=== PATIENT | male | born 1975 | race Native Hawaiian/Other Pacific Islander ===

== ENCOUNTER 2019-12-08 10:53 | Emergency (ER) | payer OTHER ==
[2019-12-08] MEDS ORDERED: BUFFERED LIDOCAINE 10 ML SYRINGE SUBQ STA (12:18)
--- NOTE | 2019-12-08 12:21 | ED Physician Documentation ---
PD HPI UPPER EXT INJURY - Stated complaint Stated Complaint: LT FINGER LAC - Chief complaint Chief Complaint: Laceration - History obtained from History obtained from: Patient - History of Present Illness Location: Left Type of injury: Laceration - Additonal information Additional information: Right-handed gentleman up-to-date on tetanus cut his left index and middle fingers with a circular saw at home just prior to arrival. Review of Systems Constitutional: reports: Reviewed and negative Ears: reports: Reviewed and negative Nose: reports: Reviewed and negative Throat: reports: Reviewed and negative PD PAST MEDICAL HISTORY - Allergies Allergies/Adverse Reactions: Allergies Allergy/AdvReac Type Severity Reaction Status Date / Time No Known Drug Allergies Allergy Verified 12/08/19 12:37 PD ED PE NORMAL - Vitals Vital signs reviewed: Yes - General General: Alert and oriented X 3, No acute distress - Extremities Extremities: Other (Small laceration on the left index finger, ulnar side, palm ar surface, no distal neurovascular compromise, there is more of an extensive laceration across the pulp of the left middle finger and he is partially insensate distal to this.) - Neuro Neuro: Alert and oriented X 3, Normal speech Results - Vitals Vitals: Vital Signs - 24 hr 12/08/19 11:22 Temperature 36.3 C L Heart Rate 82 Respiratory 18 Rate Blood Pressure 151/108 H O2 Saturation 99 Oxygen O2 Source Room air - Rads (name of study) L hand 3v Radiology: EMP read contemporaneously (no open frx) Procedures - Laceration (location) Left middle Length in cm: 1.5 Wound type: Into subcut fat Neurovascular status: Motor intact, Vascular intact. No: Sensory intact Anesthesia: Lidocaine 1%, With bicarb Wound Preparation: Hibiclens, Irrigated copiously NS Skin layer closure: Nylon, Interrupted, Size #-0 - enter number (4-0), Sutures - enter # (5) Other: Tetanus UTD Complexity: Simple PD MEDICAL DECISION MAKING - ED course ED course: Left 2nd/index finger did not need suturing, just wound care, the third middle finger did need suturing. Departure - Departure Disposition: 01 Home, Self Care Clinical Impression: Laceration Condition: Good Record reviewed to determine appropriate education?: Yes Instructions: ED Laceration Hand Comments: As discussed it seems that you have a partial nerve injury in your middle/third finger. It is too far distal for a hand surgeon to primarily repair it. The sensation may or may not come back over time. Come back for any signs of infection which would include: Redness, swelling, drainage, increased pain, or fevers. You can wash it soap and water. Keep it covered and moist with bacitracin ointment which is available over the counter; avoid neosporin. Follow-up with your physician in About 14 days for suture removal.
--- NOTE | 2019-12-08 12:56 | XRAY Report ---
PROCEDURE: Hand 3 View LT INDICATIONS: hand injury TECHNIQUE: 3 views of the hand(s) acquired. COMPARISON: None FINDINGS: Bones: No fractures or dislocations. No suspicious bony lesions. Soft tissues: No suspicious soft tissue calcifications. No radiopaque foreign bodies are seen. IMPRESSION: No significant bony abnormality is detected on these plain films. If it would be helpful for clinical management decision making, please consider a dedicated CT of the area of interest for further evaluation. No radiopaque foreign bodies are detected. Reviewed by: Surya Caceres MD on 12/08/2019 11:55 AM [facility] Approved by: Surya Caceres MD on 12/08/2019 11:55 AM [facility] Station ID: [id number]
[2019-12-08 13:11] VITALS: BP 153/97
== END 2019-12-08 13:08 | disposition home or self-care (01) ==
LOC: ED 10:53
DX: S61.213A Laceration without foreign body of left middle finger without damage to nail, initial encounter (principal); S61.211A Laceration without foreign body of left index finger without damage to nail, initial encounter; W31.2XXA Contact with powered woodworking and forming machines, initial encounter; Y93.89 Activity, other specified; Y92.009 Unspecified place in unspecified non-institutional (private) residence as the place of occurrence of the external cause
CPT/HCPCS: 12001; 99282; 99283